=== PATIENT | male | born 1975 | race Two or more races ===

== ENCOUNTER 2017-05-24 11:54 | Inpatient (IN) | payer OTHER ==
[~2017-05-24] VITALS: Ht 167.6 cm; Wt 116.3 kg
[~2017-05-24 11:54] MED LIST: ASPI-650 PO; CARV-39 PO; CARV6.2512 PO; CEFD300C37 PO; ENOX40SY4 SQ; FURO10VI37 IV; FURO20TA3 PO; LISI-170 PO; LISI5TAB7 PO; SPIR25TA PO; SPIR25TA3 PO
[2017-05-24 13:24] LABS: BASOPHILS # (AUTO) 0.02 x10^3/uL (0-0.1); BASOPHILS % (AUTO) 0 % (0-1); EOSINOPHILS # (AUTO) 0.05 x10^3/uL (0-0.4); EOSINOPHILS % (AUTO) 1 % (1-7); LYMPHOCYTES # (AUTO) 1.35 x10^3/uL (1-3.4); LYMPHOCYTES % (AUTO) 19 % (22-44); MD NO; MEAN CORPUSCULAR HEMOGLOBIN 28.3 pg (27.5-34.5); MEAN CORPUSCULAR HGB CONC 33.4 g/dL (33.2-36.2); MEAN CORPUSCULAR VOLUME 84.6 fL (81-97); MEAN PLATELET VOLUME 8.1 fL (7.4-10.4); MONOCYTES # (AUTO) 0.45 x10^3/uL (0.2-0.8); MONOCYTES % (AUTO) 6 % (2-9); NEUTROPHILS # (AUTO) 5.18 x10^3/uL (1.8-6.8); NEUTROPHILS % (AUTO) 73 % (42-75); PLATELET COUNT 229 x10^3/uL (130-400); RED BLOOD COUNT 5.79 x10^6/uL (4.38-5.82); RED CELL DISTRIBUTION WIDTH 14.5 % (9.4-14.8)
[2017-05-24] MEDS ORDERED: METOCLOPRAMIDE 5 MG/ML, 2ML IVPush ONE (13:30)
[2017-05-24] MEDS ORDERED: SODIUM CHLORIDE 0.9% 1,000ML IVBOLUS ONE (13:30)
[2017-05-24] MEDS ORDERED: SODIUM CHLORIDE FLUSH 10ML SYR IVF ONE (13:30)
[2017-05-24] MEDS ORDERED: DIPHENHYDRAMINE 50 MG/ML, 1ML IVPush ONE (13:30)
[2017-05-24 13:39] LABS: ALBUMIN 3.9 g/dL (3.4-5.0); ANION GAP 8 mmol/L (5-15); CALCIUM 8.9 mg/dL (8.5-10.1); CHLORIDE 106 mmol/L (98-107); CREATININE 0.91 mg/dL (0.7-1.3)
[2017-05-24] MEDS ORDERED: ASPIRIN 325 MG TABLET PO STA (14:00)
[2017-05-24] MEDS ORDERED: METOCLOPRAMIDE 5 MG/ML, 2ML ONE (14:09)
[2017-05-24] MEDS ORDERED: DIPHENHYDRAMINE 50 MG/ML, 1ML ONE (14:09)
[2017-05-24] MEDS ORDERED: ASPIRIN 325 MG TABLET ONE (14:09)
[2017-05-24 16:09] VITALS: BP 151/91
[2017-05-24] MEDS ORDERED: ENALAPRILAT 1.25 MG/ML, 2ML IV PRN (16:30)
[2017-05-24] MEDS: ASPIRIN/DIPYRIDAMOLE 25MG/200MG CAPSULE PO SCH (17:43)
[2017-05-24] MEDS: ACETAMINOPHEN 325 MG TABLET PO PRN (18:21)
[2017-05-24] MEDS ORDERED: KETOROLAC 30 MG/1 ML IVPush ONE (18:30)
[2017-05-24 18:46] VITALS: BP 159/91
[2017-05-24 19:17] LABS: HCT (SEDRATE) 47.6 % (39.2-51.8)
[2017-05-24] MEDS: ATORVASTATIN 40 MG TABLET PO SCH (20:25)
[2017-05-25 02:14] VITALS: BP 141/95
[2017-05-25 04:57] LABS: CHOL/HDL RATIO 7.8; LDL/HDL RATIO 5.9 (0.5-3.0)
[2017-05-25] MEDS: ACETAMINOPHEN 325 MG TABLET PO PRN ×2 (09:24→16:16)
[2017-05-25] MEDS: ASPIRIN/DIPYRIDAMOLE 25MG/200MG CAPSULE PO SCH (09:24)
[2017-05-25 09:33] VITALS: BP 143/110
[2017-05-25 14:25] LABS: ANA SCREEN NEGATIVE (Negative)
[2017-05-25 15:28] VITALS: BP 133/84
[2017-05-25 19:05] VITALS: BP 142/81
[2017-05-25] MEDS: ATORVASTATIN 40 MG TABLET PO SCH (19:49)
[2017-05-26 01:55] VITALS: BP 140/84
[2017-05-26] MEDS ORDERED: ASPIRIN 81 MG TABLET EC PO SCH (06:00)
[2017-05-26] MEDS ORDERED: ATOR40TA78 PO (06:54)
[2017-05-26 08:04] VITALS: BP 132/90
== END 2017-05-26 12:05 | disposition home or self-care (01) | DRG 65 ==
LOC: ED 13:22 → EDIP 14:02 → 4WST 14:55 → DCLOUNGE 05-26 11:47
PROVIDERS: ADMIT Hospitalist; ATTEND Hospitalist
DX: I63.532 Cerebral infarction due to unspecified occlusion or stenosis of left posterior cerebral artery (principal); E84.9 Cystic fibrosis, unspecified; I42.0 Dilated cardiomyopathy; E66.01 Morbid (severe) obesity due to excess calories; Z68.41 Body mass index [BMI] 40.0-44.9, adult; E78.5 Hyperlipidemia, unspecified; G43.C0 Periodic headache syndromes in child or adult, not intractable; I10 Essential (primary) hypertension; I25.2 Old myocardial infarction; Z95.0 Presence of cardiac pacemaker; Z79.82 Long term (current) use of aspirin; Z79.899 Other long term (current) drug therapy; G47.33 Obstructive sleep apnea (adult) (pediatric)
CPT/HCPCS: 36415; 70450; 80048; 80061; 81241; 82040; 83090; 85025; 85300; 85301; 85303; 85306; 85651; 86038; 86147; 93005; 93880; 96374; 96375; C8929; 92523-GN; J1200; J2765; J7030